=== PATIENT | female | born 1995 | race African-American/Black ===

== ENCOUNTER 2018-10-11 19:34 | Emergency (ER) | payer SELFPAY ==
--- NOTE | 2018-10-11 19:40 | PDOC ---
Rapid Medical Evaluation Chief Complaint: Pain Time Seen by Provider: 10/11/18 19:38 Medical Evaluation: Allergies Allergy/AdvReac Type Severity Reaction Status Date / Time No Known Allergies Allergy Verified 10/11/18 19:39 10/11/18 19:39 HPI: Abdominal pain x 3 days PE: No gross deficits ORDERS: Labs Discharge Disposition - Diagnosis Abdominal pain - Referrals - Patient Instructions - Post Discharge Activity
[2018-10-11 19:43] VITALS: BP 108/53; PULSE 91; TEMP 98.2; BMI 32.8
[2018-10-11 21:06] LABS: BASO % 0.6 % (0-2.0); EOS % 0.4 % (0-4.5); HEMATOCRIT 34.4 % (32.4-45.2); HEMOGLOBIN 11.4 GM/dL (10.7-15.3); LYMPH % 21.5 % (8-40); MCH 29.4 pg (25.7-33.7); MCHC 33.2 g/dl (32.0-36.0); MEAN CELL VOLUME 88.5 fl (80-96); MEAN PLT VOLUME 8.7 fl (7.5-11.1); MONO % 9.8 % (3.8-10.2); NEUT % 67.7 % (42.8-82.8); PLATELET COUNT 250 K/MM3 (134-434); RBC 3.89 M/mm3 (3.60-5.2); RDW 13.4 % (11.6-15.6); WHITE BLOOD COUNT 7.1 K/mm3 (4.0-10.0)
--- NOTE | 2018-10-11 21:21 | PDOC ---
*Physical Exam - Vital Signs Last Vital Signs Temp Pulse Resp BP Pulse Ox 98.2 F 91 H 20 108/53 L 100 10/11/18 19:39 10/11/18 19:39 10/11/18 19:39 10/11/18 19:39 10/11/18 19:39 ED Treatment Course - LABORATORY CBC & Chemistry Diagram: 10/11/18 20:51 10/11/18 20:51 - ADDITIONAL ORDERS Additional order review: Laboratory Results 10/11/18 20:51 Serum , Qual Positive Medical Decision Making - Medical Decision Making 10/11/18 21:20 Patient seen by the advanced practice provider under my direct supervision. Ancillary testing reviewed as necessary. I agree with plan as outlined by the advanced practice provider. *DC/Admit/Observation/Transfer Diagnosis at time of Disposition: Abdominal pain - Referrals Referrals: Floridalma Johnson MD [Primary Care Provider] - - Patient Instructions - Post Discharge Activity
[2018-10-11 21:22] LABS: PH,URINE 5.5 (5.0-8.0); URINE APPEARANCE CLEAR; URINE BILIRUBIN NEGATIVE (NEGATIVE); URINE COLOR YELLOW; URINE GLUCOSE (UA) NEGATIVE (NEGATIVE); URINE KETONE TRACE (NEGATIVE); URINE LEUK ESTERASE NEGATIVE (NEGATIVE); URINE NITRITE NEGATIVE (NEGATIVE); URINE PROTEIN NEGATIVE (NEGATIVE)
[2018-10-11 21:23] LABS: ALBUMIN 3.4 g/dl (3.4-5.0); BILIRUBIN,TOTAL 0.3 mg/dL (0.2-1); BLOOD UREA NITROGEN 12.8 mg/dL (7-18); CALCIUM 9.1 mg/dL (8.5-10.1); CREATININE 0.8 mg/dL (0.55-1.3); POTASSIUM 3.7 mmol/L (3.5-5.1); TOT PROT 7.1 g/dl (6.4-8.2)
--- NOTE | 2018-10-11 21:51 | PDOC ---
History of Present Illness - General Chief Complaint: Pain Stated Complaint: ABDOMINAL PAIN Time Seen by Provider: 10/11/18 19:38 History Source: Patient - History of Present Illness Initial Comments: 10/11/18 21:42 22 year old female c/o lower abdominal pain on and off x 3 days. DENIES vaginal discharge, bleeding, urinary symptoms. LMP : 08/24/2018 Past History - Past Medical History Allergies/Adverse Reactions: Allergies Allergy/AdvReac Type Severity Reaction Status Date / Time No Known Allergies Allergy Verified 10/11/18 19:39 Home Medications: Ambulatory Orders 105/Iron/Folic AC/Dha [Prena1 True Combo Pack] 1 each PO DAILY #30 combo..pkg 10/12/18 - Suicide/Smoking/Psychosocial Hx Smoking History: Never smoked Hx Alcohol Use: No Drug/Substance Use Hx: No Review of Systems - Review of Systems Able to Perform ROS?: Yes Is the patient limited [place] proficient: No Constitutional: No: Symptoms Reported, See HPI, Chills, Diaphoresis, Fever, Loss of Appetite, Malaise, Night Sweats, Weakness, Weight Stable, Unintentional Wgt. Loss, Unexplained wgt Loss, Other ABD/GI: Yes: Other (pelvic pain) : No: Symptoms Reported, See HPI, Burning, Dysuria, Discharge, Frequency, Flank Pain, Hematuria, Incontinence, Pain, Urgency, Testicular Mass, Testicular Swelling, Lesions, Testicular Pain, Other *Physical Exam - Vital Signs Last Vital Signs Temp Pulse Resp BP Pulse Ox 98.2 F 91 H 20 108/53 L 100 10/11/18 19:39 10/11/18 19:39 10/11/18 19:39 10/11/18 19:39 10/11/18 19:39 - Physical Exam General Appearance: Yes: Appropriately Dressed Respiratory/Chest: positive: Lungs Clear, Normal Breath Sounds Cardiovascular: positive: Regular Rate, Tachycardia Female Pelvic Exam: positive: normal external exam, other (normal pelvic exam, vaginal white discharge, suprapubic tenderness) Gastrointestinal/Abdominal: positive: Normal Bowel Sounds, Soft Extremity: positive: Normal Capillary Refill, Normal Inspection, Normal Range of Motion Integumentary: positive: Normal Color, Dry, Warm Neurologic: positive: Fully Oriented, Alert ED Treatment Course - LABORATORY CBC & Chemistry Diagram: 10/11/18 20:51 10/11/18 20:51 - ADDITIONAL ORDERS Additional order review: Laboratory Results 10/11/18 10/11/18 10/11/18 20:51 20:51 20:51 Sodium 140 Potassium 3.7 Chloride 108 H Carbon Dioxide 26 Anion Gap 7 L BUN 12.8 Creatinine 0.8 Est GFR (CKD-EPI)AfAm 123.01 Est GFR (CKD-EPI)NonAf 106.13 Random Glucose 93 Calcium 9.1 Total Bilirubin 0.3 AST 9 L ALT 14 Alkaline Phosphatase 84 Total Protein 7.1 Albumin 3.4 Lipase 128 Serum , Qual Positive Urine Color Yellow Urine Appearance Clear Urine pH 5.5 Ur Specific [place] 1.034 Urine Protein Negative Urine Glucose (UA) Negative Urine Ketones Trace H Urine Blood Negative Urine Nitrite Negative Urine Bilirubin Negative Urine Urobilinogen 1.0 Ur Leukocyte Esterase Negative 10/11/18 20:51 RBC 3.89 MCV 88.5 MCHC 33.2 RDW 13.4 MPV 8.7 Neutrophils % 67.7 Lymphocytes % 21.5 Monocytes % 9.8 Eosinophils % 0.4 Basophils % 0.6 Progress Note - Progress Note Progress Note: A: pelvic pain; IUP P: cbc cmp beta hcg ua transvaginal US *DC/Admit/Observation/Transfer Diagnosis at time of Disposition: Pelvic pain, Intrauterine - Discharge Dispostion Disposition: HOME Condition at time of disposition: Improved - Prescriptions Prescriptions: 105/Iron/Folic AC/Dha [Prena1 True Combo Pack] 1 each PO DAILY #30 combo..pkg - Referrals Referrals: Floridalma Johnson MD [Primary Care Provider] - Don Lutz MD [Staff Physician] - Call tomorrow - Patient Instructions Printed Discharge Instructions: Managing Symptoms of Additional Instructions: drink plenty of fluids. take vitamins daily Follow-up with an RADIOLOGIST as soon as possible return to the ER if you are soaking 2 pads per hour, severe abdominal pain, or worsening symptoms. - Post Discharge Activity Forms/Work/School Notes: Back to Work
--- NOTE | 2018-10-12 10:12 | EKG ---
Test Reason : Blood Pressure : / mmHG Vent. Rate : 071 BPM Atrial Rate : 071 BPM P-R Int : 140 ms QRS Dur : 084 ms QT Int : 350 ms P-R-T Axes : 056 041 037 degrees QTc Int : 380 ms NORMAL SINUS RHYTHM WITH SINUS ARRHYTHMIA NORMAL ECG NO PREVIOUS ECGS AVAILABLE Confirmed by WANG DAVIS, VANESSA ([id number]) on 10/12/2018 10:11:48 AM Referred By: Confirmed By:VANESSA PIÑA MD
== END 2018-10-12 01:13 | disposition home or self-care (01) ==
LOC: JER 19:34
DX: O26.891 Other specified pregnancy related conditions, first trimester (principal); Z3A.01 Less than 8 weeks gestation of pregnancy; R10.2 Pelvic and perineal pain
CPT/HCPCS: 36415; 76817-TC; 80053; 81003; 83690; 84702; 84703; 85025; 86850; 86900; 86901; 87086; 93005; 93010; 99283-25

== ENCOUNTER 2020-10-31 10:34 | Emergency (ER) | payer OTHER ==
[2020-10-31 10:41] VITALS: BP 138/93; PULSE 89; TEMP 99.1; BMI 33.6
== END 2020-10-31 11:58 | disposition home or self-care (01) ==
LOC: JER 10:34 → JERFT 10:34
DX: K08.89 Other specified disorders of teeth and supporting structures (principal)
CPT/HCPCS: 99283-25